=== PATIENT | male | born 1985 | race Hispanic/Latino ===

== ENCOUNTER 2021-03-16 08:54 | Observation (INO) | payer OTHER ==
[~2021-03-16] VITALS: Ht 172.7 cm; Wt 86.2 kg
[2021-03-16 10:10] VITALS: BP 140/88
[2021-03-16] MEDS ORDERED: SIMV5TAB58 PO (10:49)
[2021-03-16] MEDS ORDERED: LACTULOSE 20 GM/30 ML UDCUP PO PRN (11:30)
[2021-03-16] MEDS ORDERED: ACETAMINOPHEN 325 MG TAB PO PRN ×2 (11:30)
[2021-03-16] MEDS ORDERED: ONDANSETRON 4MG INJ IV PRN (11:30)
[2021-03-16] MEDS: 0.9%NACL 1000ML 1,000 ML IV SCH (12:24)
[2021-03-16] MEDS: CEFTRIAXONE 1G VIAL IV SCH (12:24)
[2021-03-16 12:44] LABS: APPEARANCE,URINE Clear (CLEAR); BILIRUBIN,URINE Negative (NEGATIVE); COLOR,URINE Yellow (YELLOW); GLUCOSE, URINE (UA) Negative (NEGATIVE); KETONES,URINE Negative (NEGATIVE); LEUKOCYTE ESTERASE ,URINE Negative (NEGATIVE); NITRATE,URINE Negative (NEGATIVE); OCCULT BLOOD,URINE Negative (NEGATIVE); PROTEIN,URINE Negative (NEGATIVE)
[2021-03-16 15:20] VITALS: BP 130/89
[2021-03-16 19:41] VITALS: BP 125/87
[2021-03-16] MEDS: FAMOTIDINE 20MG VIAL IV SCH (20:17)
[2021-03-16 23:16] VITALS: BP 134/86
[2021-03-17] VITALS (22 sets, daily range): BP systolic 113–162; BP diastolic 70–98
[2021-03-17] MEDS: 0.9%NACL 1000ML 1,000 ML IV SCH ×3 (01:05→16:00)
[2021-03-17] MEDS: MORPHINE 2 MG SYG IV PRN ×3 (01:05→20:40)
[2021-03-17 05:14] LABS: BASOPHILS % (AUTO) 0.8 % (0.0-5.0); EOSINOPHILS % (AUTO) 5.5 % (0.0-8.0); HEMATOCRIT 41.2 % (42-54); LYMPHOCYTES % (AUTO) 42.9 % (21.0-51.0); MEAN CORPUSCULAR HEMOGLOBIN 31.1 pg (27.0-33.0); MONOCYTES % (AUTO) 6.8 % (3.0-13.0); NEUTROPHILS % (AUTO) 43.8 % (40.0-77.0); PLATELET COUNT (AUTO) 236 K/uL (130-400); RED BLOOD CELL COUNT(AUTO) 4.63 MIL/uL (4.50-6.20); RED CELL DISTRIBUTION WIDTH 11.9 % (11.0-15.5); WHITE BLOOD COUNT (AUTO) 4.7 K/uL (4.8-10.8)
[2021-03-17 05:37] LABS: ALBUMIN 3.3 g/dL (3.5-5.0); BILIRUBIN,TOTAL 0.6 mg/dL (0.2-1.0); TOTAL PROTEIN, SERUM 6.4 g/dL (6.0-8.3)
[2021-03-17] MEDS: ENOXAPARIN SODIUM 40 MG/0.4 ML SYRINGE SQ SCH (07:46)
[2021-03-17] MEDS: FAMOTIDINE 20MG VIAL IV SCH ×2 (09:11→20:30)
[2021-03-17] MEDS: METRONIDAZOLE 500MG/100ML BAG 100 ML IVPB SCH ×2 (10:19→16:00)
[2021-03-17] MEDS: CEFTRIAXONE 1G VIAL IV SCH (12:02)
[2021-03-17] MEDS ORDERED: LIDOCAINE PF 100MG/5ML (2%) SYRINGE 5ML ONE (12:44)
[2021-03-17] MEDS ORDERED: MIDAZOLAM HCL 1 MG/ML 2ML VIAL ONE (12:45)
[2021-03-17] MEDS ORDERED: PROPOFOL 10 MG/ML 20ML VIAL IV ONE (12:45)
[2021-03-17] MEDS ORDERED: ONDANSETRON 4MG INJ ONE (12:45)
[2021-03-17] MEDS ORDERED: ROCURONIUM 10MG/1ML SYR 10 MG/ML ML ONE (12:45)
[2021-03-17] MEDS ORDERED: FENTANYL CITRATE PF 50 MCG/1 ML 2ML VIAL ONE ×2 (12:47→13:22)
[2021-03-17] MEDS ORDERED: LIDOCAINE HCL/EPINEPHRINE 30 ML VIAL IJ ONE (12:49)
[2021-03-17] MEDS ORDERED: CEFAZOLIN SODIUM 1 GM VIAL ONE (12:49)
[2021-03-17] MEDS ORDERED: BUPIVACAINE/PF 0.25% 30ML VIAL IJ ONE (12:49)
[2021-03-17] MEDS ORDERED: GLYCOPYRROLATE 1 MG/5 ML SYRINGE ONE (14:01)
[2021-03-17] MEDS ORDERED: DEXAMETHASONE SOD PHOSPHATE 4 MG/ML 1ML VIAL ONE (14:02)
[2021-03-17] MEDS ORDERED: NEOSTIGMINE 5MG/5ML SYR IV ONE (14:02)
[2021-03-17] MEDS ORDERED: MEPERIDINE-PF 25 MG/ML SYG ONE (14:38)
[2021-03-17] MEDS ORDERED: KETOROLAC 30MG VIAL (30MG/ML) ONE (14:51)
[2021-03-17] MEDS ORDERED: ZOSYN 3.375GM+NS 50ML 3.38 GM in 0.9%NACL 50ML 50 ML IV SCH (17:00)
[2021-03-17] MEDS: ZOSYN 3.375GM +NS 50ML IV SCH (17:25)
[2021-03-17] MEDS: OXYCODONE/ACETAMIN 5/325MG TAB PO PRN (23:49)
[2021-03-18] MEDS: ZOSYN 3.375GM +NS 50ML IV SCH ×2 (00:44→08:37)
[2021-03-18] MEDS: 0.9%NACL 1000ML 1,000 ML IV SCH ×2 (03:30→13:30)
[2021-03-18 04:00] VITALS: BP 105/74
[2021-03-18] MEDS: MORPHINE 2 MG SYG IV PRN (04:44)
[2021-03-18] MEDS: OXYCODONE/ACETAMIN 5/325MG TAB PO PRN ×2 (06:00→14:25)
[2021-03-18 06:28] LABS: BASOPHILS % (AUTO) 0.5 % (0.0-5.0); EOSINOPHILS % (AUTO) 0.8 % (0.0-8.0); HEMATOCRIT 40.4 % (42-54); LYMPHOCYTES % (AUTO) 24.2 % (21.0-51.0); MEAN CORPUSCULAR HEMOGLOBIN 31.1 pg (27.0-33.0); MEAN CORPUSCULAR HGB CONC 34.9 g/dL (32.0-36.0); MONOCYTES % (AUTO) 6.9 % (3.0-13.0); NEUTROPHILS % (AUTO) 67.3 % (40.0-77.0); PLATELET COUNT (AUTO) 234 K/uL (130-400); RED BLOOD CELL COUNT(AUTO) 4.54 MIL/uL (4.50-6.20); RED CELL DISTRIBUTION WIDTH 11.9 % (11.0-15.5); WHITE BLOOD COUNT (AUTO) 7.5 K/uL (4.8-10.8)
[2021-03-18 06:52] LABS: ALBUMIN 3.3 g/dL (3.5-5.0); BILIRUBIN,TOTAL 0.7 mg/dL (0.2-1.0); CREATININE 1.1 mg/dL (0.5-1.5); POTASSIUM 3.8 mmol/L (3.5-5.1); TOTAL PROTEIN, SERUM 6.5 g/dL (6.0-8.3)
[2021-03-18 08:00] VITALS: BP 132/91
[2021-03-18] MEDS: FAMOTIDINE 20MG VIAL IV SCH (08:38)
[2021-03-18] MEDS: ENOXAPARIN SODIUM 40 MG/0.4 ML SYRINGE SQ SCH (08:38)
[2021-03-18 12:00] VITALS: BP 134/99
[2021-03-18 16:00] VITALS: BP 151/105
== END 2021-03-18 16:30 | disposition home or self-care (01) ==
LOC: EDBD 08:54 → EDSTATUS 09:02 → 3AH 10:00
PROVIDERS: ADMIT Internal Medicine; ATTEND Internal Medicine
DX: K80.00 Calculus of gallbladder with acute cholecystitis without obstruction (principal); Z20.822 Contact with and (suspected) exposure to COVID-19; K82.8 Other specified diseases of gallbladder; R11.2 Nausea with vomiting, unspecified; K66.0 Peritoneal adhesions (postprocedural) (postinfection); E78.5 Hyperlipidemia, unspecified; Z79.899 Other long term (current) drug therapy
CPT/HCPCS: 36415 ×2; 47562; 80053 ×2; 81003; 85025 ×2; 87635; 96361 ×3; 96365; 96366 ×3; 96367; 96372; 96375 ×2; 96376 ×2; A4649 ×5; A4930; C1769 ×3; G0378 ×52; G0379; J0690; J0696 ×2; J1100; J1650; J1885; J2001; J2175; J2250; J2405; J2543 ×3; J2704; J2710; J3010 ×2; J3490 ×8; J7030 ×2